=== PATIENT | male | born 1990 | race Caucasian/White ===

== ENCOUNTER 2016-09-28 13:46 | Emergency (ER) | payer SELFPAY ==
[~2016-09-28] VITALS: Ht 190.5 cm; Wt 100.0 kg
[2016-09-28 13:50] VITALS: BP 138/77; TEMP 97.8; O2SAT 100
[2016-09-28] MEDS ORDERED: XARE20TA PO (14:17)
[2016-09-28] MEDS ORDERED: GABA800T PO (14:17)
--- NOTE | 2016-09-28 14:18 | PD ---
HPI Chief Complaint: Medication Refill Request Time Seen by Provider: 14:09 Travel History International Travel<30 days: No Contact w/Intl Traveler<30days: No Traveled to known affect area: No History of Present Illness HPI 25-year-old male here with complaint of medication refill. Patient was diagnosed with a DVT and cellulitis in the right lower extremity after hospitalization in [place] several weeks ago. He was given prescriptions for gabapentin which she takes chronically for neuropathy, Xarelto. Patient had been compliant with these until when he suddenly need to come down here for work, [email or web address] Patient forgot his medications. He has been without them now for the last 2-3 days and requests refill for the Xarelto and gabapentin. PFSH Past Medical History Hx Anticoagulant Therapy: Yes (XARELTO) Deep Vein Thrombosis: Yes Social History Tobacco Use: No Allergies-Medications Reported Meds & Prescriptions Reported Meds & Active Scripts Active Gabapentin 800 Mg Tab 800 Mg PO QID 30 Days Xarelto (Rivaroxaban) 20 Mg Tab 20 Mg PO DAILY 30 Days Review of Systems Except as stated in HPI: all other systems reviewed are Neg Physical Exam Narrative GENERAL: Well-appearing male in no acute distress SKIN: Focused skin assessment warm/dry. HEAD: Normocephalic. EYES: Pupils equal and round. Pupils 7 mm. No scleral icterus. No injection or drainage. ENT: No nasal bleeding or discharge. Mucous membranes pink and moist. NECK: Supple CARDIOVASCULAR: Regular rate and rhythm. RESPIRATORY: No accessory muscle use. MUSCULOSKELETAL: Right lower extremity is edematous from the calf distally, no ecchymosis, erythema. Good distal sensation and pulses, normal gait. NEUROLOGICAL: Awake and alert. Normal speech. PSYCHIATRIC: Appropriate mood and affect; insight and judgment normal. Data Data Last Documented VS Vital Signs Date Time Temp Pulse Resp B/P Pulse Ox O2 Delivery O2 Flow Rate FiO2 09/28/16 13:50 97.8 94 20 138/77 100 Room Air MDM Medical Decision Making Medical Screen Exam Complete: Yes Emergency Medical Condition: Yes Medical Record Reviewed: Yes Differential Diagnosis 25-year-old male here on business trip with known right lower extremity DVT forgot his Xarelto and gabapentin for neuropathy. Exam and history are consistent with the above. Narrative Course Patient was given medication refill for Xarelto and gabapentin. He had also had hydrocodone prescribed but I informed him that I would not be prescribing this. Patient was agreeable. He was given coupon card for the Xarelto. Diagnosis Primary Impression: DVT (deep venous thrombosis) Qualified Code: I82.401 - Acute deep vein thrombosis (DVT) of right lower extremity, unspecified vein Referrals: Primary Care Physician as needed Additional Instructions: Medications as prescribed. Med/Other Pt SpecificInfo: Prescription(s) given Scripts Gabapentin 800 Mg [id number] Mg PO QID 30 Days Ref 0 Prov:Khalida Booth MD 09/28/16 Rivaroxaban (Xarelto)20 Mg Tab20 Mg PO DAILY 30 Days Ref 0 Prov:Khalida Booth MD 09/28/16 Disposition: 01 DISCHARGE HOME Condition: Stable Khalida Booth MD Sep 28, 2016 14:18
== END 2016-09-28 14:45 | disposition home or self-care (01) ==
LOC: NEPD 13:46
DX: I82.401 Acute embolism and thrombosis of unspecified deep veins of right lower extremity (principal); G62.9 Polyneuropathy, unspecified; Z76.0 Encounter for issue of repeat prescription; Z79.01 Long term (current) use of anticoagulants
CPT/HCPCS: 99281